=== PATIENT | male | born 1975 | race Two or more races ===

== ENCOUNTER 2020-08-09 13:54 | Emergency (ER) | payer OTHER ==
[~2020-08-09] VITALS: Ht 175.3 cm; Wt 81.2 kg
[~2020-08-09 13:54] MED LIST: AMOXICILLIN500 MG ORAL; HYDROCODON-ACE1 EA15 ORAL; IBUPROFEN600 MG ORAL
--- NOTE | 2020-08-09 14:20 | NUR ---
ED Nurse Note: Patient walked in to ER stated was playing basketball on sunday and next morning his right foot was hurting. Patient walked in to ER with steady gait, AAO x4, VSS at this time. Patient's right ankle swollen.
[2020-08-09] MEDS ORDERED: Ketorolac 30mg Inj IM ONE (15:00)
--- NOTE | 2020-08-09 15:47 | Emergency Room Report ---
History of Present Illness General Chief Complaint: Lower Extremity Injury Source: Patient Present Illness HPI 45-year-old male with no cerebrovascular history complaining pain dorsal right foot x1 week without any fall or injury. Reports that it is worse when he is walking on it. Denies any pain with range of motion. Denies any tingling or numbness. Minimal swelling noted. Denies any calf tenderness, tingling or numbness. Denies any chest pain shortness of breath. Patient reports that he play sports every day. Denies any recent travel, or surgery. Denies history of tobacco smoke. Denies pleuritic chest pain. Sitting comfortably with stable signs. Has taken Advil with minimal relief. Patient is neurovascularly intact. 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 Patient History Past Medical History: see triage record Past Surgical History: none Pertinent Family History: none Immunizations: UTD Reviewed Nursing Documentation: PMH: Agreed; PSxH: Agreed Nursing Documentation-PMH Past Medical History: No History, Except For Hx Diabetes: Yes Review of Systems All Other Systems: negative except mentioned in HPI Physical Exam Vital Signs Date Time Temp Pulse Resp B/P (MAP) Pulse Ox O2 Delivery O2 Flow Rate FiO2 08/09/20 14:12 98.2 84 16 149/100 (116) 99 Room Air Sp02 EP Interpretation: reviewed, normal General Appearance: no apparent distress, alert, GCS 15, non-toxic Head: normocephalic, atraumatic Eyes: bilateral eye normal inspection, bilateral eye PERRL ENT: hearing grossly normal, normal pharynx, no angioedema, normal voice Neck: full range of motion, supple/symm/no masses Respiratory: chest non-tender, lungs clear, normal breath sounds, speaking full sentences Cardiovascular #1: regular rate, rhythm, no edema Cardiovascular #2: 2+ dorsalis pedis (R), 2+ dorsalis pedis (L) Gastrointestinal: normal bowel sounds, non tender, soft, non-distended, no guarding, no rebound Rectal: deferred Genitourinary: no CVA tenderness Musculoskeletal: back normal, no calf tenderness, pelvis stable, non-tender, swelling - Dorsum of right foot Neurologic: alert, oriented Psychiatric: judgement/insight normal, memory normal, mood/affect normal, no suicidal/homicidal ideation Skin: no rash Lymphatic: no adenopathy Procedures Splinting Splinting : Consent: Verbal Location: Right foot Pre-Made Type: Postop shoe Pre-Proc Neuro Vasc Exam: normal Post-Proc Neuro Vasc Exam: normal Patient Tolerated: Well Complications: None Medical Decision Making PA Attestation All my diagnosis and treatment plans were reviewed ad discussed with my supervising physician Dr. Almaguer Diagnostic Impression: Primary Impression: Right foot sprain ER Course 45-year-old male with no cerebrovascular history complaining pain dorsal right foot x1 week without any fall or injury. Reports that it is worse when he is walking on it. Denies any pain with range of motion. Denies any tingling or numbness. Minimal swelling noted. Denies any calf tenderness, tingling or numbness. Denies any chest pain shortness of breath. Patient reports that he play sports every day. Denies any recent travel, or surgery. Denies history of tobacco smoke. Denies pleuritic chest pain. Sitting comfortably with stable signs. Has taken Advil with minimal relief. Patient is neurovascularly intact. Ddx considered but are not limited to: foot fracture, foot sprain, foot contusion, foot strain Vital signs: are WNL, pt. is afebrile H&PE are most consistent with: right foot sprain ORDERS: foot Xray, robaxin, ibuprofen ED INTERVENTIONS: Toradol, postop shoe, at this time no further evaluation, or arterial duplex needed patient does not meet the criteria does not have risk factors for DVT or peripheral arterial disease however advised him to follow-up with primary doctor DISCHARGE: At this time pt. is stable for d/c to home. Will provide printed patient care instructions, and any necessary prescriptions. Care plan and follow up instructions have been discussed with the patient prior to discharge. Take medication as directed, follow-up primary care provider, follow with communicable disease specialist, worsening symptoms return to emergency room. Other X-Ray Diagnostic Results Other X-Ray Diagnostic Results : X-Ray ordered: Right foot # of Views/Limited Vs Complete: 3 View Indication: Pain EP Interpretation: Yes JOSEF Xray: Interpretation reviewed, by supervising MD, and agrees with findings. Interpretation: no dislocation, no soft tissue swelling, no fractures Impression: No acute disease Electronically Signed by: Lisset Qiu PA-C Last Vital Signs Date Time Temp Pulse Resp B/P (MAP) Pulse Ox O2 Delivery O2 Flow Rate FiO2 08/09/20 14:12 98.2 84 16 149/100 (116) 99 Room Air Disposition: HOME, SELF-CARE Condition: Stable Scripts Ibuprofen* (MOTRIN*) 600 Mg Tablet 600 MG ORAL Q6H PRN for For Pain, #30 TAB 0 Refills Prov: Lisset Mays 08/09/20 Methocarbamol* (ROBAXIN-500*) 500 Mg Tablet 500 MG ORAL TID PRN for For Pain, #15 TAB 0 Refills Prov: Lisset Mays 08/09/20 Patient Instructions: Foot Sprain Additional Instructions: Take medication as directed, follow-up with your primary care provider, if worsening symptoms return to the emergency room Lisset Mays Aug 09, 2020 15:47
[2020-08-09] MEDS ORDERED: IBUPROFEN600 M1 ORAL (15:49)
[2020-08-09] MEDS ORDERED: ROBAXIN-500MG ORAL (15:49)
[2020-08-09 16:05] VITALS: BP 149/100
--- NOTE | 2020-08-09 16:05 | NUR ---
ED Nurse Note: Pt cleared by health care Provider for discharge. DC instructions/prescription was given and explained to pt and verbalized understanding of teachings. All medical deviecs such as ID band removed. Pt is AAO x4, ambulatory and left with all personal belongings.
--- NOTE | 2020-08-09 19:25 | Diagnostic Imaging Report ---
. Indication: Pain, trauma Technique: 3 views of the right ankle Comparison: none Findings: No acute fractures. No dislocations. Joint spaces are preserved Impression: Negative
--- NOTE | 2020-08-09 19:26 | Diagnostic Imaging Report ---
Indication: Pain, trauma Technique: 3 views right foot Comparison: none Findings: No acute fractures. No dislocations. There is hammertoe deformities second through fifth digits. Impression: No acute process
== END 2020-08-09 16:05 | disposition home or self-care (01) ==
LOC: EMR 14:45
DX: S93.601A Unspecified sprain of right foot, initial encounter (principal); X58.XXXA Exposure to other specified factors, initial encounter; Y92.9 Unspecified place or not applicable; E11.9 Type 2 diabetes mellitus without complications
CPT/HCPCS: 73610; 73630; 99283; J1885

== ENCOUNTER 2020-12-25 14:26 | Emergency (ER) | payer OTHER ==
[~2020-12-25] VITALS: Ht 175.3 cm; Wt 65.8 kg
[~2020-12-25 14:26] MED LIST changes: +IBUPROFEN600 M1 ORAL; +ROBAXIN-500MG ORAL
[2020-12-25 17:03] VITALS: BP 139/100
[2020-12-25 17:12] VITALS: BP 139/100
--- NOTE | 2020-12-25 17:12 | NUR ---
came to er complaints of recal pain and bleeding x 2 months denies any vomiting or dyiarrhea
--- NOTE | 2020-12-25 17:21 | Emergency Room Report ---
History of Present Illness General Chief Complaint: Abdominal Pain Source: Patient Present Illness HPI Disclaimer: Please note that this report is being documented using [employer] technology. This can lead to erroneous entry secondary to incorrect interpretation by the dictating instrument. HPI: 45-year-old male history of diabetes presents for abdominal pain and rectal bleeding. Symptoms present for several weeks. He reports lower abdominal pain and cramping, early satiety and pressure. Reports some constipation and straining to pass stools recently. Denies diarrhea, nausea, vomiting, fever, chills. He reports seeing bright red blood in the toilet bowl after defecating. Denies pain with defecation. Also complaining of swelling around the foreskin. States he was diagnosed with phimosis and has been keeping the area clean with hydrogen peroxide however he sustained a cut on the foreskin last week and he is concerned is infected. Still able to pass urine. Denies dysuria hematuria. PMH: Diabetes PSH: Denied Allergies: Denied Social Hx: Reviewed Allergies: Coded Allergies: No Known Allergies (Unverified , 11/21/15) COVID-19 Screening Contact w/high risk pt: No Experienced COVID-19 symptoms?: No COVID-19 Testing performed CORE FINISHER: No Nursing Documentation-PMH Past Medical History: No Stated History Hx Diabetes: Yes Review of Systems All Other Systems: negative except mentioned in HPI Physical Exam Vital Signs Date Time Temp Pulse Resp B/P (MAP) Pulse Ox O2 Delivery O2 Flow Rate FiO2 12/25/20 17:03 98.8 88 18 139/100 (113) 98 Room Air General: Awake and alert, no acute distress HEENT: NC/AT. EOMI. Cardiovascular: RRR. S1 and S2 normal. No murmur appreciated Resp: Normal work of breathing. No cough, wheezing or crackles appreciated Abdomen: Abdomen is soft, nondistended. Tenderness palpation suprapubic, left lower quadrant. No guarding. No rebound. No masses. : Uncircumcised male. Unable to retract foreskin past the glans. There is a 1 cm somewhat purulent region of skin with surrounding erythema and mild edema. No bleeding. Rectal: No external or palpable internal hemorrhoids. Gross red blood mixed with stool in rectal vault Skin: Intact. No abrasions, laceration or rash over the exposed skin MSK: Normal tone and bulk. Moving all extremities. No obvious deformity. Neuro: Awake and alert. Mentating appropriately. Medical Decision Making Diagnostic Impression: Primary Impression: Cellulitis Additional Impressions: Phimosis Proctitis UTI (urinary tract infection) ER Course 45-year-old male presents for evaluation of rectal bleeding, abdominal pain, skin infection. Differential includes was not limited to cellulitis, abscess, balanitis, posthitis, hemorrhoid, GI bleed, diverticulosis, diverticulitis, UTI among others. The patient does appear to have a superficial cellulitis over the foreskin after he sustained an abrasion. Urinalysis concerning for urinary tract infection. Will prescribe Keflex both for the cellulitis and for UTI. CT scan concerning for colitis and proctitis. The patient does engage in receptive anal intercourse. Will treat empirically for gonorrhea and chlamydia and refer to outpatient testing for additional STDs. He will require a colonoscopy which I discussed with him. He currently does not have a PMD but does have insurance. He will contact his insurance provider tomorrow for referral to a new PMD, a urologist as well as a nuclear operations specialist. He is otherwise well-appearing and stable for outpatient follow-up. Instructed to return with new or worsening symptoms. Laboratory Tests Test 12/25/20 17:30 White Blood Count 3.4 K/UL (4.8-10.8) L Red Blood Count 5.02 M/UL (4.70-6.10) Hemoglobin 14.5 G/DL (14.2-18.0) Hematocrit 43.0 % (42.0-52.0) Mean Corpuscular Volume 86 FL (80-99) Mean Corpuscular Hemoglobin 28.8 PG (27.0-31.0) Mean Corpuscular Hemoglobin Concent 33.6 G/DL (32.0-36.0) Red Cell Distribution Width 13.6 % (11.6-14.8) Platelet Count 91 K/UL (150-450) L Mean Platelet Volume 9.1 FL (6.5-10.1) Neutrophils (%) (Auto) 64.8 % (45.0-75.0) Lymphocytes (%) (Auto) 22.4 % (20.0-45.0) Monocytes (%) (Auto) 11.7 % (1.0-10.0) H Eosinophils (%) (Auto) 0.4 % (0.0-3.0) Basophils (%) (Auto) 0.7 % (0.0-2.0) Urine Color Pale yellow Urine Appearance Slightly cloudy Urine pH 5 (4.5-8.0) Urine Specific Halliday 1.015 (1.005-1.035) Urine Protein 1+ (NEGATIVE) H Urine Glucose (UA) 4+ (NEGATIVE) H Urine Ketones 1+ (NEGATIVE) H Urine Blood 1+ (NEGATIVE) H Urine Nitrite Negative (NEGATIVE) Urine Bilirubin Negative (NEGATIVE) Urine Urobilinogen Normal MG/DL (0.0-1.0) Urine Leukocyte Esterase 1+ (NEGATIVE) H Urine RBC 5-10 /HPF (0 - 0) H Urine WBC 10-15 /HPF (0 - 0) H Urine Squamous Epithelial Cells Moderate /LPF (NONE/OCC) H Urine Bacteria Moderate /HPF (NONE) H Urine Yeast Moderate /HPF (NONE) H Stool Occult Blood Positive (NEGATIVE) Sodium Level 137 MMOL/L (136-145) Potassium Level 4.2 MMOL/L (3.5-5.1) Chloride Level 100 MMOL/L (98-107) Carbon Dioxide Level 27 MMOL/L (21-32) Anion Gap 10 mmol/L (5-15) Blood Urea Nitrogen 18 mg/dL (7-18) Creatinine 1.0 MG/DL (0.55-1.30) Estimated Glomerular Filtration Rate > 60 mL/min (>60) Glucose Level 329 MG/DL (74-106) H Calcium Level 8.6 MG/DL (8.5-10.1) Total Bilirubin 0.6 MG/DL (0.2-1.0) Aspartate Amino Transferase (AST) 32 U/L (15-37) Alanine Aminotransferase (ALT) 41 U/L (12-78) Alkaline Phosphatase 74 U/L (46-116) Total Protein 7.3 G/DL (6.4-8.2) Albumin 3.3 G/DL (3.4-5.0) L Globulin 4.0 g/dL Albumin/Globulin Ratio 0.8 (1.0-2.7) L Lipase 200 U/L (73-393) CT/MRI/US Diagnostic Results CT/MRI/US Diagnostic Results : Impression FINDINGS: Lung bases: Unremarkable. No mass. No consolidation. Mediastinum: The stomach is decompressed with no hiatal hernia. ABDOMEN: Liver: Decreased attenuation at the junction of medial and lateral segments of the left liver lobe, likely focal area of fatty infiltration. Gallbladder and bile ducts: Unremarkable. No calcified stones. No ductal dilation. Pancreas: Unremarkable. No mass. No ductal dilation. Spleen: The spleen measures 15.4 cm consistent with mild splenomegaly. Adrenals: Unremarkable. No mass. Kidneys and ureters: Unremarkable. No solid mass. No hydronephrosis. Stomach and bowel: Thickening of the wall to the distal: At the level of the sigmoid and rectum consistent with distal colitis and proctitis. The distal colonic inflammatory lesion not entirely excluded. Multiple nodules surrounding the distal aspect of the sigmoid averaging approximately 1.2 cm in diameter most like representing reactive lymphadenopathy. No obstruction. PELVIS: Appendix: Normal appendix. Bladder: Unremarkable. No mass. Reproductive: Borderline enlarged prostate gland. ABDOMEN and PELVIS: Intraperitoneal space: Unremarkable. No free air. No significant fluid collection. Bones/joints: Degenerative disease of the lower thoracic spine. No acute fracture. No dislocation. Soft tissues: Unremarkable. Vasculature: Unremarkable. No abdominal aortic aneurysm. Lymph nodes: Left inguinal lymph nodes largest measuring 2.7 x 1.3 cm. IMPRESSION: 1. Distal colitis/proctitis. Mild lymphadenopathy surrounding the distal sigmoid likely sequela of nonspecific reactive inflammatory response. Recommend follow-up with colonoscopy following treatment to exclude underlying colonic lesion. 2. Mild significant prominence at the level of the left inguinal region of indeterminate etiology. 3. Mild splenomegaly, remainder of abdominal viscera unremarkable. Dictated By: Marianna Park M.D. Electronically Signed By:Marianna Park M.D. Signed Date/Time 12/25/201938 Last Vital Signs Date Time Temp Pulse Resp B/P (MAP) Pulse Ox O2 Delivery O2 Flow Rate FiO2 12/25/20 17:12 88 18 Room Air 12/25/20 17:12 98.8 139/100 98 Disposition: HOME, SELF-CARE Condition: Stable Scripts Doxycycline Monohydrate* (DOXYCYCLINE MONOHYDRATE*) 100 Mg Capsule 100 MG ORAL Q12H for 7 Days, #14 CAP 0 Refills Prov: Trever Resendez MD 12/25/20 Cephalexin* (KEFLEX*) 500 Mg Capsule 500 MG ORAL EVERY 12 HOURS, #14 CAP 0 Refills Prov: Trever Resendez MD 12/25/20 Clotrimazole* (LOTRIMIN*) 15 Gm Cream..g. 1 APPLIC TOPIC TWICE A DAY for 7 Days, #15 GM Prov: Trever Resendez MD 12/25/20 Referrals: NOT CHOSEN IPA/,REFERRING (PCP) Trever Resendez MD Dec 25, 2020 17:21
[2020-12-25] MEDS ORDERED: CLOTRIMAZOLE15 GM TOPIC (17:24)
[2020-12-25] MEDS ORDERED: Omnipaque-300 100ml vial INJ PRN (17:30)
[2020-12-25 18:04] LABS: BILIRUBIN, URINE NEGATIVE (NEGATIVE); COLOR,URINE PALE YELLOW; GLUCOSE, URINE (UA) 4+ (NEGATIVE); KETONES,URINE 1+ (NEGATIVE); LEUKOCYTE ESTERASE ,URINE 1+ (NEGATIVE); NITRITE,URINE NEGATIVE (NEGATIVE); PH,URINE 5 (4.5-8.0); PROTEIN,URINE 1+ (NEGATIVE); UROBILINOGEN,URINE NORMAL MG/DL (0.0-1.0)
[2020-12-25 18:12] LABS: APPEARANCE,URINE SLIGHTLY CLOUDY
[2020-12-25 18:15] LABS: HEMOGLOBIN 14.5 G/DL (14.2-18.0); LYMPHOCYTES % (AUTO) 22.4 % (20.0-45.0); MEAN CORPUSCULAR VOLUME 86 FL (80-99); NEUTROPHILS % (AUTO) 64.8 % (45.0-75.0); PLATELET COUNT 91 K/UL (150-450); RED BLOOD COUNT 5.02 M/UL (4.70-6.10); RED CELL DISTRIBUTION WIDTH 13.6 % (11.6-14.8); WHITE BLOOD COUNT 3.4 K/UL (4.8-10.8)
[2020-12-25 18:16] LABS: BASOPHILS % (AUTO) 0.7 % (0.0-2.0); EOSINOPHILS % (AUTO) 0.4 % (0.0-3.0); MONOCYTES % (AUTO) 11.7 % (1.0-10.0)
[2020-12-25 18:34] LABS: ANION GAP 10 mmol/L (5-15); BLOOD UREA NITROGEN 18 mg/dL (7-18); CALCIUM 8.6 MG/DL (8.5-10.1); CARBON DIOXIDE 27 MMOL/L (21-32); CHLORIDE 100 MMOL/L (98-107); POTASSIUM 4.2 MMOL/L (3.5-5.1); SODIUM 137 MMOL/L (136-145)
[2020-12-25 18:38] LABS: ALANINE AMINOTRANSFERASE 41 U/L (12-78); ALBUMIN 3.3 G/DL (3.4-5.0); ALBUMIN/GLOBULIN RATIO 0.8 (1.0-2.7); ALKALINE PHOSPHATASE 74 U/L (46-116); ASPARTATE AMINO TRANSFERASE 32 U/L (15-37); BILIRUBIN,TOTAL 0.6 MG/DL (0.2-1.0)
[2020-12-25] MEDS ORDERED: Insulin Human Regular 100units/ml 3ml IV ONE (18:45)
--- NOTE | 2020-12-25 19:21 | NUR ---
pt in ortho tx rm. pt aox4. no complaints at this time. v/s stable. pt in no distress. medicated per mar. glucose 227 at bedside. will continue to monitor pt closely. Addendum: 12/25/20 at 2000 by DEANGLEO glucose is 272
--- NOTE | 2020-12-25 19:39 | Diagnostic Imaging Report ---
EXAM: CT Abdomen and Pelvis With Intravenous Contrast CLINICAL HISTORY: BLD TECHNIQUE: Axial computed tomography images of the abdomen and pelvis with intravenous contrast. CTDI is 4.9 mGy and DLP is 267.90 mGy-cm. One or more of the following dose reduction techniques were used: automated exposure control, adjustment of the mA and/or kV according to patient size, use of iterative reconstruction technique. COMPARISON: None. FINDINGS: Lung bases: Unremarkable. No mass. No consolidation. Mediastinum: The stomach is decompressed with no hiatal hernia. ABDOMEN: Liver: Decreased attenuation at the junction of medial and lateral segments of the left liver lobe, likely focal area of fatty infiltration. Gallbladder and bile ducts: Unremarkable. No calcified stones. No ductal dilation. Pancreas: Unremarkable. No mass. No ductal dilation. Spleen: The spleen measures 15.4 cm consistent with mild splenomegaly. Adrenals: Unremarkable. No mass. Kidneys and ureters: Unremarkable. No solid mass. No hydronephrosis. Stomach and bowel: Thickening of the wall to the distal: At the level of the sigmoid and rectum consistent with distal colitis and proctitis. The distal colonic inflammatory lesion not entirely excluded. Multiple nodules surrounding the distal aspect of the sigmoid averaging approximately 1.2 cm in diameter most like representing reactive lymphadenopathy. No obstruction. PELVIS: Appendix: Normal appendix. Bladder: Unremarkable. No mass. Reproductive: Borderline enlarged prostate gland. ABDOMEN and PELVIS: Intraperitoneal space: Unremarkable. No free air. No significant fluid collection. Bones/joints: Degenerative disease of the lower thoracic spine. No acute fracture. No dislocation. Soft tissues: Unremarkable. Vasculature: Unremarkable. No abdominal aortic aneurysm. Lymph nodes: Left inguinal lymph nodes largest measuring 2.7 x 1.3 cm. IMPRESSION: 1. Distal colitis/proctitis. Mild lymphadenopathy surrounding the distal sigmoid likely sequela of nonspecific reactive inflammatory response. Recommend follow-up with colonoscopy following treatment to exclude underlying colonic lesion. 2. Mild significant prominence at the level of the left inguinal region of indeterminate etiology. 3. Mild splenomegaly, remainder of abdominal viscera unremarkable.
--- NOTE | 2020-12-25 20:01 | NUR ---
repeat glucose 218. md at bedside for reeval
[2020-12-25] MEDS ORDERED: CEPHALEXIN500 MG ORAL (20:12)
[2020-12-25] MEDS ORDERED: DOXYCYCLINE MO100 MG ORAL (20:12)
[2020-12-25] MEDS ORDERED: Lidocaine 1% MPF 10mg/ml 5ml INJ ONE (20:15)
[2020-12-25] MEDS ORDERED: Doxycycline Monohydrate 100mg ORAL ONE (20:15)
[2020-12-25] MEDS ORDERED: cefTRIAXone 500mg Inj IM ONE (20:15)
--- NOTE | 2020-12-25 20:36 | NUR ---
pt aox3 given and understands discharge instructions. v/s stable. pt in no distress. ambulatory out w steady gait
== END 2020-12-25 20:38 | disposition home or self-care (01) ==
LOC: EMR 17:15
DX: N48.22 Cellulitis of corpus cavernosum and penis (principal); N47.1 Phimosis; K62.89 Other specified diseases of anus and rectum; N39.0 Urinary tract infection, site not specified; E11.9 Type 2 diabetes mellitus without complications
CPT/HCPCS: 36415; 74177; 80053; 81003; 82270; 82962; 83690; 85025; 87086; 96372; 96374; 99284; J0696; J1815; Q9965